=== PATIENT | male | born 1990 | race Caucasian/White ===

== ENCOUNTER 2022-09-09 09:08 | Outpatient (CLI) | payer OTHER, SELFPAY ==
--- NOTE | 2022-09-09 08:45 | DI.RAD_ITS ---
Exam(s) XR KNEE RT 3V AP,LAT,CASTRO EXAM: XR KNEE RT 3V AP,LAT,CASTRO CLINICAL HISTORY: R knee injury. TECHNIQUE: 2D digital imaging was performed. Three views. COMPARISON: No exams were available for comparison FINDINGS: BONES: No acute fracture is present. No bony destructive lesion is seen. JOINTS: Joint spaces are maintained. The knee is normally aligned. No joint effusion is seen. SOFT TISSUE: Anterior swelling. IMPRESSION: No evidence of fracture or joint effusion. DATA REPOSITORY: RADIATION DOSE DELIVERED:
== END 2022-09-09 09:09 | disposition home or self-care (01) ==
LOC: DIORS 09:08
PROVIDERS: PCP Nurse Practitioner Family; Referring Provider Nurse Practitioner Family; Visit Provider Physician Assistant
DX: S89.91XA Unspecified injury of right lower leg, initial encounter (principal); X58.XXXA Exposure to other specified factors, initial encounter
CPT/HCPCS: 73562